=== PATIENT | male | born 1935 | race Caucasian/White ===

== ENCOUNTER 2017-12-06 09:19 | Emergency (ER) | payer OTHER ==
[~2017-12-06] VITALS: Ht 170.2 cm; Wt 86.2 kg
[2017-12-06 09:24] VITALS: BP_SYST 142
[2017-12-06] MEDS ORDERED: ASPIRIN 81 MG TAB.CHEW PO ONE (09:30)
[2017-12-06] MEDS ORDERED: NITROGLYCERIN 1 INCH (GM) OINT. TP ONE (09:30)
[2017-12-06 09:54] LABS: BASOPHILS # (AUTO) 0.1 K/uL (0.0-0.2); BASOPHILS % (AUTO) 1.5 % (0.0-2.0); EOSINOPHILS # (AUTO) 0.1 K/uL (0.0-0.4); EOSINOPHILS % (AUTO) 1.3 % (0.0-4.0); HEMATOCRIT 44.2 % (36-54); HEMOGLOBIN 14.5 g/dL (14.0-18.0); LYMPHOCYTES # (AUTO) 0.8 K/uL (1.0-5.5); LYMPHOCYTES % (AUTO) 18.4 % (20.5-51.5); MEAN CORPUSCULAR HEMOGLOBIN 31 pg (27-31); MEAN CORPUSCULAR HGB CONC 33 % (32-36); MEAN CORPUSCULAR VOLUME 95 fL (79.0-98.0); MONOCYTES # (AUTO) 0.3 K/uL (0.0-1.0); NEUTROPHILS # (AUTO) 3.2 K/uL (1.8-7.7); NEUTROPHILS % (AUTO) 71.8 % (40.0-70.0); PLATELET COUNT (AUTO) 311 K/uL (130-430); RED BLOOD CELL COUNT(AUTO) 4.67 MIL/uL (4.2-6.2); RED CELL DISTRIBUTION WIDTH 13.9 % (9.0-15.0); WHITE BLOOD COUNT (AUTO) 4.6 K/uL (4.8-10.8)
[2017-12-06 10:06] LABS: PROTHROMBIN TIME 10.3 SECS (9.5-12.5)
[2017-12-06 10:09] LABS: ANION GAP 10 (5-15); CALCIUM 9.2 mg/dL (8.4-11.0); CHLORIDE 103 mmol/L (98-107); CREATININE 1.14 mg/dL (0.55-1.30); GLUCOSE 162 mg/dL (70-99); POTASSIUM 4.3 mmol/L (3.5-5.1); SODIUM SERUM 137 mmol/L (136-145); UREA NITROGEN, BLOOD 14 mg/dL (8-21)
[2017-12-06 10:13] LABS: ALANINE AMINOTRANSFERASE 26 U/L (12-78); ASPARTATE AMINOTRANSFERASE 26 U/L (10-37); TOTAL BILIRUBIN 0.7 mg/dL (0.0-1.0)
[2017-12-06 11:28] LABS: BILIRUBIN,URINE NEGATIVE (NEGATIVE); CLARITY/URINE CLEAR (CLEAR); COLOR,URINE YELLOW (YELLOW); GLUCOSE,URINE NEGATIVE (NEGATIVE); KETONES,URINE NEGATIVE (NEGATIVE); LEUKOCYTE ESTERASE ,URINE 1+ (NEGATIVE); NITRITE, URINE NEGATIVE (NEGATIVE); PROTEIN URINE NEGATIVE (NEGATIVE); UROBILINOGEN,URINE 0.2 (0.2-1.0)
[2017-12-06 11:31] LABS: BLOOD, URINE TRACE (NEGATIVE)
[2017-12-06 11:43] LABS: BACTERIA,URINE FEW /HPF (None Seen)
[2017-12-06 11:44] LABS: MUCUS,URINE None Seen /LPF (None Seen); YEAST,URINE None Seen /HPF (None Seen)
[2017-12-06 12:48] VITALS: BP_SYST 139
== END 2017-12-06 12:49 | disposition short-term general hospital (02) ==
LOC: SED 09:19
DX: I20.0 Unstable angina (principal); R07.89 Other chest pain; I10 Essential (primary) hypertension; K21.9 Gastro-esophageal reflux disease without esophagitis; E78.5 Hyperlipidemia, unspecified
CPT/HCPCS: 36415; 71045; 80053; 81000-TC; 83880; 84484; 85025; 85379; 85610-TC; 87086; 93005; 99285